=== PATIENT | female | born 1970 | race Caucasian/White ===

== ENCOUNTER 2024-10-28 06:12 | Day surgery (SDC) | payer BC, SELFPAY ==
[2024-10-28] VITALS (12 sets, daily range): BP systolic 145–189; BP diastolic 74–113; BMI 32.8
[2024-10-28] MEDS: NSS 298 ML IV (07:12)
--- NOTE | 2024-10-28 09:59 | ITS.CL.PN ---
Adoption Worker - Procedure Note
Procedure
Procedure Note:
CARDIAC CATHETERIZATION REPORT
Date of Procedure: 10/28/2024
Referring: Dr. Pepe Smart DO
Indication: atypical chest pain, positive cardiac stress test, preoperative risk evaluation prior to noncardiac surgery
PROCEDURE(S)
1. left heart catheterization
2. coronary angiography
ACCESS: 6F right radial artery (closure: radial band)
CATHETERS
1. 6F JR4
2. 6F JL3.5
MODERATE SEDATION: 25 minutes of moderate sedation was utilized. An independent biomedical instrument technician was present to assist with and help manage the patient's level of consciousness and physiologic status.
HEMODYNAMIC DATA
LV 181/12 (EDP 20) mmHg
AO 174/104 (mean 137) mmHg
CORONARY ANGIOGRAPHY
Dominance: Right
LM: large, normal
LAD: large vessel giving rise to a large D1 and wrapping around the apex. There are mild luminal irregularities only.
LCx: large vessel giving rise to a large OM1 and large OM2. There are mild luminal irregularities only.
RCA: large vessel giving rise to a large caliber RPDA. There are mild luminal irregularities only.
RADIATION: dose 282 mGy; DAP 13.6 Gy*cm2; fluoroscopy time 3.4 min
CONCLUSIONS
1. non obstructive coronary artery disease with mild luminal irregularities only in a right dominant system
2. systemic hypertension, mildly elevated LV filling pressure, and no aortic stenosis
RECOMMENDATIONS
1. primary prevention of coronary artery disease
Copy to: Dr. Pepe Smart DO (paper cup handle machine operator); Dr. Tena Cunningham MD (PCP)
Signed: Cresencio aSntana MD, PhD
== END 2024-10-28 12:41 | disposition home or self-care (01) ==
LOC: CATH 06:12
PROVIDERS: ATTENDING PHYSICIAN Student in an Organized Health Care Education/Training Program; OTHER PHYSICIAN Student in an Organized Health Care Education/Training Program
DX: R07.89 Other chest pain (principal); I25.10 Atherosclerotic heart disease of native coronary artery without angina pectoris; I10 Essential (primary) hypertension; Z79.890 Hormone replacement therapy; Z79.899 Other long term (current) drug therapy
CPT/HCPCS: 99152; 99153; 93458; C1894; Q9967